=== PATIENT | male | born 1975 | race Caucasian/White ===

== ENCOUNTER 2017-08-02 06:09 | Emergency (ER) | payer MEDICAID ==
[~2017-08-02] VITALS: Ht 177.8 cm; Wt 88.7 kg
[2017-08-02] MEDS ORDERED: RANI150C PO (06:29)
[2017-08-02] MEDS ORDERED: SODIUM CHLORIDE FLUSH 10ML SYR IVF ONE (06:30)
[2017-08-02] MEDS ORDERED: MIGRAINE (06:30)
[2017-08-02] MEDS ORDERED: MORPHINE SULFATE 4 MG/ML, 1ML ONE ×2 (06:31→07:08)
[2017-08-02] MEDS: MORPHINE SULFATE 4 MG/ML, 1ML IVPush PRN ×2 (06:32→07:22)
[2017-08-02 07:05] LABS: BASOPHILS # (AUTO) 0.13 x10^3/uL (0-0.1); BASOPHILS % (AUTO) 1 % (0-1); EOSINOPHILS # (AUTO) 0.29 x10^3/uL (0-0.4); EOSINOPHILS % (AUTO) 2 % (1-7); LYMPHOCYTES # (AUTO) 2.97 x10^3/uL (1-3.4); LYMPHOCYTES % (AUTO) 24 % (22-44); MD NO; MEAN CORPUSCULAR HEMOGLOBIN 32.6 pg (27.5-34.5); MEAN CORPUSCULAR HGB CONC 33.9 g/dL (33.2-36.2); MEAN CORPUSCULAR VOLUME 96.2 fL (81-97); MEAN PLATELET VOLUME 8.1 fL (7.4-10.4); MONOCYTES # (AUTO) 0.97 x10^3/uL (0.2-0.8); MONOCYTES % (AUTO) 8 % (2-9); NEUTROPHILS # (AUTO) 8.17 x10^3/uL (1.8-6.8); NEUTROPHILS % (AUTO) 65 % (42-75); PLATELET COUNT 290 x10^3/uL (130-400); RED BLOOD COUNT 5.07 x10^6/uL (4.38-5.82); RED CELL DISTRIBUTION WIDTH 14.7 % (9.4-14.8)
[2017-08-02 07:12] LABS: INTERNATIONAL NORMALIZED RATIO 0.94 (0.93-1.1); PROTHROMBIN TIME 9.7 Seconds (9.6-11.5)
[2017-08-02 07:16] LABS: ALBUMIN 3.6 g/dL (3.4-5.0); ANION GAP 7 mmol/L (5-15); CALCIUM 8.7 mg/dL (8.5-10.1); CHLORIDE 112 mmol/L (98-107)
[2017-08-02 07:20] LABS: ALANINE AMINOTRANSFERASE 35 U/L (12-78); ALKALINE PHOSPHATASE 91 U/L (45-117); BILIRUBIN,TOTAL 0.2 mg/dL (0.2-1.0); CREATININE 0.93 mg/dL (0.7-1.3); TOTAL PROTEIN 6.8 g/dL (6.4-8.2)
[2017-08-02 07:53] LABS: MICROSCOPIC AUTO
[2017-08-02 08:03] LABS: CULTURE INDICATED? YES
[2017-08-02] MEDS ORDERED: KETOROLAC 30 MG/1 ML ONE (08:57)
[2017-08-02] MEDS ORDERED: KETOROLAC 30 MG/1 ML IM ONE (09:00)
[2017-08-02] MEDS ORDERED: KETOROLAC 30 MG/1 ML IVPush ONE (09:30)
[2017-08-02 09:43] VITALS: BP 138/82
== END 2017-08-02 09:47 | disposition home or self-care (01) ==
LOC: ED 09:46
DX: R10.9 Unspecified abdominal pain (principal); F17.200 Nicotine dependence, unspecified, uncomplicated
CPT/HCPCS: 36415; 74022; 74176; 80053; 81001; 83690; 85025; 85610; 87086; 93005; 96374; 96375; 96376; 99285; J1885

== ENCOUNTER 2019-11-02 01:04 | Emergency (ER) | payer MEDICAID ==
[~2019-11-02] VITALS: Ht 172.7 cm; Wt 99.0 kg
[~2019-11-02 01:04] MED LIST: MIGRAINE; RANI150C PO
--- NOTE | 2019-11-02 01:24 | NUR ---
PT CAME IN ED TONIGHT DUE TO SWOLLEN FOURTH DIGIT ON LEFT HAND. PT STATES HE IS UNSURE WHAT HAPPENED BUT THINKS IT IS AN INFECTED HANG NAIL. PT FIGNER IS REDDENED AND SLIGHTLY SWOLLEN, STATES PAIN 6/10, DENIES ANY LOSS OF SENSATION, STATES IT IS TENDER. PT NAD, RESTING ON GURNEY, TDAP WITHIN LAST 4-5 YEARS. WCTM. PT PLACED ON SPO2/BP MONITORING
[2019-11-02 01:26] VITALS: BP 120/78
--- NOTE | 2019-11-02 01:49 | NUR ---
SUSAN MCDONALD AT FOR I&D. PT RESTING ON RAKESH RUIZ, NO CHANGE IN CONDITION, WCTM.
--- NOTE | 2019-11-02 02:04 | NUR ---
Patient given discharge instructions and they have confirmed that they understand the instructions. Patient ambulatory with steady gait. NAD, DENIES ADDITIONAL NEEDS, QUESTIONS ANSWERED APPROPRIATELY. PT LEFT WITH ALL PERSONAL BELONGINGS.
== END 2019-11-02 02:06 | disposition home or self-care (01) ==
LOC: ED 01:38
DX: L03.012 Cellulitis of left finger (principal); M79.645 Pain in left finger(s)
CPT/HCPCS: 10060